=== PATIENT | male | born 1985 | race Caucasian/White ===

== ENCOUNTER 2020-11-29 18:27 | Emergency (ER) | payer OTHER ==
[2020-11-29 22:56] LABS: BASOPHIL 0.6 % (0-2); EOSINOPHIL 0.5 % (0-5); LYMPHOCYTE 16.7 % (15-48); MCH 35.9 pg (25.0-31.0); MCHC 35.6 g/dL (32.0-36.0); MCV 100.9 fL (78.0-100.0); MONOCYTE 8.6 % (0-12); MPV 10.8 fL (6.0-9.5); NEUTROPHIL 73.2 % (41-80); NRBC 0; PLT 153 K/uL (150-400); RBC 4.46 M/uL (4.70-6.00); RDW 11.6 % (11.5-14.0); WBC 10.9 K/uL (4.0-10.5)
[2020-11-29 23:05] LABS: BILIRUBIN 1+ mg/dL (NEGATIVE); BLOOD TRACE-INTACT Ery/uL (NEGATIVE); COLOR YELLOW (YELLOW); GLUCOSE (U) NORMAL (NORMAL); LEUKOCYTES 1+ Leu/uL (NEGATIVE); NITRITE NEGATIVE (NEGATIVE); PROTEIN 1+ mg/dL (NEGATIVE)
[2020-11-29 23:06] LABS: CLARITY SLIGHTLY HAZY (CLEAR)
[2020-11-29 23:12] LABS: BACTERIA TRACE
[2020-11-29 23:12] LABS: ALBUMIN 4.7 g/dL (3.4-5.0); BILIRUBIN - TOTAL 1.3 mg/dL (0.2-1.0); BUN/CREAT RATIO (CALC) 14.3 RATIO; CREATININE 0.56 mg/dL (0.67-1.17); GLOBULIN (CALCULATION) 4.1 g/dL; POTASSIUM 3.2 mmol/L (3.5-5.1); TOTAL PROTEIN 8.8 g/dL (6.4-8.2)
[2020-11-29 23:13] LABS: MUCOUS TRACE
== END 2020-11-30 03:36 | disposition home or self-care (01) ==
LOC: FER 18:27
PROVIDERS: Emergency Medicine
DX: R41.82 Altered mental status, unspecified (principal); R56.9 Unspecified convulsions; R51.9 Headache, unspecified; F17.210 Nicotine dependence, cigarettes, uncomplicated
CPT/HCPCS: 36415; 70450; 80053; 81001; 85025